=== PATIENT | female | born 1965 | race Caucasian/White ===

== ENCOUNTER → 2023-07-19 12:57 | Outpatient (POV) | payer SELFPAY | PROVIDERS: Visit Provider Dermatology | DX: Z00.00 Encounter for general adult medical examination without abnormal findings (principal) ==

== ENCOUNTER 2023-12-18 12:13 | Emergency (ER) | payer BC, SELFPAY ==
[2023-12-18 12:55] VITALS: BP 110/81; PULSE 89; RESP 21; TEMP 37.4; O2SAT 95; BMI 36.3
--- NOTE | 2023-12-18 13:20 | EXP.UTC ---
Discharge Plan Disposition Patient Disposition: Home, Self-Care Condition: Good Prescriptions Prescriptions: New methylprednisolone [Medrol (Jake)] 4 mg tablets,dose pack See Rx Instructions .Route .COMPLEX 6 Days Qty: 21 0RF Rx Instructions: taper pack; amoxicillin-pot clavulanate 875-125 mg Tablet 1 tab PO Q12H Qty: 20 0RF guaifenesin [Mucinex] 600 mg tablet extended release 12hr 1,200 mg PO BID PRN (Reason: cough) Qty: 20 0RF ofloxacin 0.3 % drops 10 drp otic (ear) Q12H 14 Days Qty: 20 0RF Rx Instructions: in right ear as directed No Action pantoprazole 20 mg tablet,delayed release (DR/EC) 20 mg PO DAILY alprazolam 0.5 mg tablet 0.5 mg PO DAILY citalopram 20 mg tablet 20 mg PO DAILY simvastatin 20 mg tablet 20 mg PO DAILY hydrochlorothiazide 25 mg tablet 25 mg PO DAILY ergocalciferol (vitamin D2) [Vitamin D2] 1,250 mcg (50,000 unit) capsule 1,250 mcg PO DAILY Referrals Follow up/Referrals: Vitor Marshall [Primary Care Provider] - See instructions Activity Restrictions/Add. Instructions Additional Instructions/Restrictions: *Monitor Temp, Over the counter Motrin or Tylenol as directed/as needed Tylenol every 4 hours and Motrin every 6 hours (as long as your family doctor has told you that you can take it) for fever or pain. and straight to ER if unable to lower temp less than 101.0 after medication given *Warm salt water gargles may help to soothe the throat *Throat Lozenges? *Warm fluids like tea with honey may help to soothe the throat? *Sleep elevated *Humidifier/Vaporizer Take medication as prescribed Use ear drops as prescribed Follow up IMMEDIATELY for new or worsening symptoms or no Noticeable improvement over the next 48-72 hours. 911 for difficulty breathing or swallowing Clinical Impressions Clinical Impression: Sinusitis Qualifiers: Sinusitis location: unspecified location Chronicity: unspecified Qualified Code(s): J32.9 - Chronic sinusitis, unspecified Otitis media Qualifiers: Otitis media type: unspecified Laterality: right Qualified Code(s): H66.91 - Otitis media, unspecified, right ear Instructions Patient Instructions: Sinusitis, Middle Ear Infection, DI for Sinusitis Discharge ED Provider: Maeve Miller [facility] [place] HPI General Stated complaint: ear pain, cough, drainage Mode of Arrival: Ambulatory Source of Information: Patient Limitations: No Limitations Time Seen by Provider: 12/18/23 13:20 Description of Symptoms (Recalled from Triage Doc. by RN): PATIENT C/O CONGESTION, COUGH WITH MUCOUS, AND RIGHT EAR ACHE WITH DECREASED HEARING SINCE 12/14 HEENT Symptoms (Recalled from RN notes): Yes Resp Symptoms (Recalled from RN notes): Yes Skin Symptoms (Recalled from RN notes): No MS Symptoms (Recalled from RN notes): No Functional Status (Recalled from RN notes): WNL History of Present Illness Provider Complaint: Patient states that she has been having sinus pain and pressure, pain and pressure in her right ear with decreased hearing, drainage in the back of her throat that at times she will cough up some mucous and over all not feeling well States today the pressure in her sinuses was worse so she came in to get checked Related Data Home Medications Medication Instructions Recorded Confirmed alprazolam 0.5 mg tablet 0.5 mg PO DAILY 12/18/23 12/18/23 citalopram 20 mg tablet 20 mg PO DAILY 12/18/23 12/18/23 ergocalciferol (vitamin D2) 1,250 1,250 mcg PO DAILY 12/18/23 12/18/23 mcg (50,000 unit) capsule (Vitamin D2) hydrochlorothiazide 25 mg tablet 25 mg PO DAILY 12/18/23 12/18/23 pantoprazole 20 mg tablet,delayed 20 mg PO DAILY 12/18/23 12/18/23 release simvastatin 20 mg tablet 20 mg PO DAILY 12/18/23 12/18/23 Previous Rx's Medication Instructions Recorded amoxicillin 875 mg-potassium 1 tab PO Q12H #20 tabs 12/18/23 clavulanate 125 mg tablet guaifenesin 600 mg tablet, 1,200 mg PO BID PRN cough #20 tabs 12/18/23 extended release 12 hr (Mucinex) methylprednisolone 4 mg tablets in See Rx Instructions .Route 12/18/23 a dose pack (Medrol (Jake)) .COMPLEX 6 days #21 tabs ofloxacin 0.3 % ear drops 10 drp otic (ear) Q12H 14 days #20 12/18/23 mL Allergies Allergy/AdvReac Type Severity Reaction Status Date / Time No Known Allergies Allergy Verified 12/18/23 13:07 Worker's Comp Is this a Worker's Comp case?: No [facility] Disclaimer: The information contained in this section may have been updated after the patient was seen, as this information can be updated by other users. Medical History (Updated 12/18/23 @ 13:28 by Maeve Miller APRN) Anxiety Hyperlipidemia Hypertension Surgical History (Updated 12/18/23 @ 13:07 by Jackie Echeverria RN) History of appendectomy History of cholecystectomy History of tubal ligation Social History Smoking Status: Unknown if ever smoked alcohol intake: never current occupational status: employed Travel in the last 8 weeks: None ROS Obtained: Yes All systems reviewed & no additional complaints except as documented and Yes Systems reviewed as appropriate & no additional complaints except as documented Constitutional Constitutional: Reports system reviewed and no additional complaints, except as documented, Reports as per HPI and Reports headache(s) ENT Ears, Nose, Mouth, and Throat: Reports system reviewed and no additional complaints, except as documented, Reports as per HPI, Reports otalgia, Reports headache(s), Reports sinus pain and Reports sinus pressure Cardiovascular Cardiovascular: Reports system reviewed and no additional complaints, except as documented and Reports as per HPI Respiratory Respiratory: Reports system reviewed and no additional complaints, except as documented, Reports as per HPI, Denies shortness of breath and Reports cough Gastrointestinal Gastrointestingal: Reports system reviewed and no additional complaints, except as documented and as per HPI Neurologic Neurologic: Reports headache(s) Physical Exam General General appearance: alert and in no apparent distress ENT ENT exam: Present mucous membranes moist Expanded ENT Exam TM/Canal exam: Right TM: erythema and loss of landmarks Nose exam: Present sinus tenderness Respiratory Respiratory exam: Present normal lung sounds bilaterally; Absent respiratory distress or wheezes Cardiovascular Cardiovascular exam: Present regular rate, normal rhythm and normal heart sounds Abdominal Exam Abdominal exam: Present soft and normal bowel sounds; Absent distention or tenderness Neurological Exam Neurological exam: Present alert, oriented X3 and normal gait Medical Decision Making Wesly Inquiry Pt receiving controlled substance: No Wesly was queried for this patient: No Vital Signs: 12/18/23 12:55 Temperature 99.3 F Temperature Source Oral Pulse Rate [Left Brachial] 89 Respiratory Rate 21 Blood Pressure [Left Arm] 110/81 Blood Pressure Mean [Left Arm] 90 Blood Pressure Source [Left Arm] Automatic Cuff Blood Pressure Position [Left Arm] Sitting 02 Sat by Pulse Oximetry 95 Oxygen Delivery Method Room Air Medical Decision Narrative: Patient states that she has taken augmentin and medrol in the past without complications or reactions
[2023-12-18 13:31] VITALS: BP 110/81; PULSE 89; RESP 21; TEMP 37.4; O2SAT 95
== END 2023-12-18 13:35 | disposition home or self-care (01) ==
PROVIDERS: Emergency Provider Nurse Practitioner; PCP Family Medicine
DX: J01.90 Acute sinusitis, unspecified (principal); H66.91 Otitis media, unspecified, right ear; R51.9 Headache, unspecified; R09.81 Nasal congestion; R09.82 Postnasal drip; R05.8 Other specified cough; I10 Essential (primary) hypertension; E78.5 Hyperlipidemia, unspecified
CPT/HCPCS: 99204; 99212; G0463

== ENCOUNTER 2025-07-20 15:32 | Emergency (ER) | payer BC, SELFPAY ==
[2025-07-20] VITALS (10 sets, daily range): BP systolic 131–179; BP diastolic 84–92; PULSE 63–75; RESP 14–20; TEMP 36.7–37; O2SAT 95–97; BMI 36.3
--- OUTSIDE RECORDS SUMMARY | 2025-07-20 15:39 | XMS_ITS | Clinical Summary ---
Author Organization [facility] Address 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 Role Phone Vitor Marshall MD Primary Care Provider [phone] Social History Tobacco Use Types Packs/Day Years Used Date Smoking Tobacco: Never Assessed Comments No Sex and Gender Information Value Date Recorded Sex Assigned at Not on file Legal Sex Female 4:49 AM EDT Gender Identity Not on file Sexual Orientation Not on file Obstetrics History Para Term AB IAB SAB Ectopic Multiple Livin g Live Births 2 Plan of Treatment Health Maintenance Due Date Last Done Comments Annual Wellness Exam 1966 Hepatitis C Screening 1981 DTaP/TDaP/Td (1 - Tdap) 1982 Cervical Cancer Screening 1984 Pap Smear 1984 HPV/Pap Cotest 1993 Cologuard 2008 Colon Cancer Screening 2008 Colonoscopy 2008 FIT 2008 Sigmoidoscopy 2008 Virtual Colonography 2008 Pneumococcal Vaccine 50+ (1 of 1 - PCV) 2013 Zoster (1 of 2) 2013 COVID-19 Vaccine (1 - season) 2025 Influenza Vaccine (#1) 2025 Breast Cancer Screening 12/11/2026 12/11/19, 11/21/2023, 11/22/2022, Additional history exists Hepatitis B Vaccine Aged Out No longe r eligible based on patient's age to complete this topic Meningococcal B Vaccine Aged Out No l onger eligible based on patient's age to complete this topic Procedures Procedure Name Priority Date/Time Associated Diagnosis Comments MM MAMMO DIGITAL VON SCREEN BILAT Routine 12/11/2024 9:40 AM EST Encounter for screening mammogram for malignant neoplasm of breast from Last 3 Months or Most Recently Relevant to Health Maintenance Results * (ABNORMAL) MM MAMMO DIGITAL VON SCREEN BILAT (12/11/2024 9:40 AM EST) Anatomical Region Laterality Modality Breast Bilateral Mammography 12/11/2024 9:40 AM EST Impressions 12/12/2024 9:11 AM EST Incomplete: Need additional imaging evaluation ([id number]) RECOMMENDATION: Additional Imaging Breast Ultrasound Left COMMENTS: Narrative 12/12/2024 9:11 AM EST EXAM: MM MAMMO DIGITAL VON SCREEN BILAT EXAM DATE: 12/11/2024 9:40 AM INDICATION: Z12.31-Encounter for screening mammogram for malignant neoplasm of [id number] COMPARISON STUDIES: Compared with prior studies, the most recent being 11/21/2023 MM MAMMO DIGITAL VON SCREEN BILAT at [facility] 11/22/2022 MM MAMMO DIGITAL VON SCREEN BILAT at [facility] 11/24/2020 MM MAMMO DIGITAL VON SCREEN BILAT at [facility] TISSUE DENSITY: There are scattered areas of fibroglandular density. FINDINGS: There is an oval circumscribed 1.5 cm mass in the upper outer quadrant left breast. This is a probable breast cyst. There are no internal microcalcifications. There is no mammographic evidence of malignancy in the right breast. Procedure Note Lavern Hobbs MD - 12/12/2024 EXAM: MM MAMMO DIGITAL VON SCREEN BILAT EXAM DATE: 12/11/2024 9:40 AM INDICATION: Z12.31-Encounter for screening mammogram for malignantneoplasm of [id number] COMPARISON STUDIES: Compared with prior studies, the most recent being 11/21/2023 MM MAMMO DIGITAL VON SCREEN BILAT at [facility] 11/22/2022 MM MAMMO DIGITAL VON SCREEN BILAT at [facility] 11/24/2020 MM MAMMO DIGITAL VON SCREEN BILAT at [facility] TISSUE DENSITY: There are scattered areas of fibroglandular density. FINDINGS: There is an oval circumscribed 1.5 cm mass in the upper outerquadrant left breast. This is a probable breast cyst. There are no internal microcalcifications. There is no mammographic evidence of malignancy inthe right breast. IMPRESSION: Incomplete: Need additional imaging evaluation ([id number]) RECOMMENDATION: Additional Imaging Breast Ultrasound Left COMMENTS: us Vitor Marshall MD IMG MAMMOGRAPHY ORDERABLES Fin al Result from Last 3 Months or Most Recently Relevant to Health Maintenance Insurance O Care Teams Concrete Mixer Operator Helper Relationship Specialty Start Date End Date Vitor Marshall MD [address] [place] [address] PCP - General Family Medicine 09/24/13
--- NOTE | 2025-07-20 15:45 | CT_ITS ---
PROCEDURE INFORMATION: Exam: CTA Head With Contrast, Arteriography Exam date and time: 07/20/2025 4:40 PM Age: 59 years old Clinical indication: Other: Left upper chest pain radiating to upper back/neck TECHNIQUE: Imaging protocol: Computed tomographic angiography of the head with contrast. Exam focused on the arteries. Computed tomographic angiography of the head with contrast. Exam focused on the arteries. AI vessel analysis not performed. 3D rendering (Not supervised by radiologist): MIP and/or 3D reconstructed images were created by the technologist. Radiation optimization: All CT scans at this facility use at least one of these dose optimization techniques: automated exposure control; mA and/or kV adjustment per patient size (includes targeted exams where dose is matched to clinical indication); or iterative reconstruction. COMPARISON: No relevant prior studies available. FINDINGS: ANTERIOR CIRCULATION: Right internal carotid artery: Right internal carotid artery is patent. No significant stenosis. No aneurysm. Right middle cerebral artery: Right middle cerebral artery is patent. No significant stenosis. No aneurysm. Right anterior cerebral artery: Visualized right SY patent. Anterior communicating artery: No anterior communicating artery aneurysm seen. Left internal carotid artery: Left internal carotid artery is patent. No significant stenosis. No aneurysm. Left middle cerebral artery: Left middle cerebral artery is patent. No significant stenosis. No aneurysm. 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 Distally the visualized vessel is patent. POSTERIOR CIRCULATION: Right vertebral artery: Right vertebral artery is patent. No significant stenosis. No aneurysm. Left vertebral artery: Left vertebral artery is patent. No significant stenosis. No aneurysm. Basilar artery: The basilar artery is patent. No significant stenosis. No aneurysm. Right posterior cerebral artery: Right posterior cerebral artery is patent. No significant stenosis. No aneurysm. Left posterior cerebral artery: Left posterior cerebral artery is patent. No significant stenosis. No aneurysm. Veins: Visualized dural venous sinuses patent. Brain: There is no definite mass, mass effect, or midline shift present. No definite vascular malformation identified. Minimal cerebellar tonsillar ectopia suspected. This could be further evaluated with an MRI for follow-up. Cerebral ventricles: No significant ventriculomegaly. Bones/joints: No acute osseous abnormality. Soft tissues: Soft tissues are unremarkable as visualized. IMPRESSION: No acute large vessel occlusion identified. PROCEDURE INFORMATION: Exam: CTA Neck With Contrast Exam date and time: 07/20/2025 4:40 PM Age: 59 years old Clinical indication: Other: Left upper chest pain radiating to upper back/neck TECHNIQUE: Imaging protocol: Computed tomographic angiography of the neck with contrast. Exam focused on the cervical segments of the vasculature. 3D rendering (Not supervised by radiologist): MIP and/or 3D reconstructed images were created by the technologist. Radiation optimization: All CT scans at this facility use at least one of these dose optimization techniques: automated exposure control; mA and/or kV adjustment per patient size (includes targeted exams where dose is matched to clinical indication); or iterative reconstruction. Contrast material: ISOVUE; Contrast volume: 80 ml; Contrast route: INTRAVENOUS (IV); COMPARISON: CR (CHEST, CXR AP LANDSCAPE) 07/20/2025 4:01 PM FINDINGS: Right common carotid artery: The right common carotid artery is widely patent. No stenosis. Right internal carotid artery: The right internal carotid artery is patent. No stenosis by NASCET criteria. No evidence of dissection. Right external carotid artery: Right external carotid artery has no visible occlusion. Left common carotid artery: The left common carotid artery is widely patent. No stenosis. Left internal carotid artery: The left internal carotid artery is patent. No stenosis by NASCET criteria. No evidence of dissection. Left external carotid artery: Left external carotid artery has no visible occlusion. Right vertebral artery: Right vertebral artery is patent. No significant stenosis. No evidence of dissection. Left vertebral artery: Left vertebral artery is patent. No significant stenosis. No evidence of dissection. Soft tissues: Soft tissues are unremarkable as visualized. Bones/joints: Degenerative bony changes. Lungs: There is a spiculated solid left upper lobe pulmonary nodule present measuring 1.2 cm on series 5, image 5. Other findings: Visualized mediastinal vasculature patent. IMPRESSION: 1. No occlusion or significant stenosis. 2. There is a spiculated solid left upper lobe pulmonary nodule present measuring 1.2 cm on series 5, image 5. This is suspicious for possible lung malignancy, attention on pending chest CT. For both low risk and high risk patients, consider CT Chest at 3 months, PET/CT, or biopsy. (Reference: Brijesh) REFERENCES: 1. Brijesh Mills et al. Guidelines for Management of Incidental Pulmonary Nodules Detected on CT Images: From the Fleischner Society 2017. Radiology. 2017;284(1):228-243. 2. NASCET CRITERIA. The degree of stenosis in the cervical segment of the internal carotid artery is based on NASCET criteria. Normal is no stenosis. Mild is less than 50% stenosis. Moderate is 50-69% stenosis. Severe is 70% to 99% stenosis. Total occlusion is no detectable patent lumen.
--- NOTE | 2025-07-20 15:45 | CT_ITS ---
PROCEDURE INFORMATION: Exam: CTA Chest With Contrast Exam date and time: 07/20/2025 4:44 PM Age: 59 years old Clinical indication: Other: Left upper chest pain radiating to upper back/neck TECHNIQUE: Imaging protocol: Computed tomographic angiography of the chest with contrast. Exam focused on the arteries. 3D rendering (Not supervised by radiologist): MIP and/or 3D reconstructed images were created by the technologist. Radiation optimization: All CT scans at this facility use at least one of these dose optimization techniques: automated exposure control; mA and/or kV adjustment per patient size (includes targeted exams where dose is matched to clinical indication); or iterative reconstruction. Contrast material: ISOVUE; Contrast volume: 80 ml; Contrast route: INTRAVENOUS (IV); COMPARISON: CR (CHEST, CXR AP LANDSCAPE) 07/20/2025 4:01 PM FINDINGS: Pulmonary arteries: Normal. No pulmonary emboli. Aorta: Unremarkable. No aortic aneurysm. No aortic dissection. Lungs: 10 x 10 x 9 mm spiculated noncalcified nodule in the left upper lobe (series 5, image 26). Pleural spaces: Unremarkable. No pneumothorax. No pleural effusion. Heart: Borderline cardiomegaly. Lymph nodes: Unremarkable. No enlarged lymph nodes. Liver: 9 x 10 x 11 mm mass in the medial left liver lobe, HU 28 (series 5, image 77). Gallbladder and biliary ducts: Cholecystectomy. Adrenal glands: 2 x 1.1 x 2 cm right adrenal nodule, HU 45. Left adrenal unremarkable. Bones/joints: Spondylosis of the spine. 8 mm subchondral cyst in the left scapular glenoid. Soft tissues: Unremarkable. IMPRESSION: 1. No thoracic aortic dissection or aneurysm. 2. 10 x 10 x 9 mm spiculated noncalcified nodule in the left upper lobe. Consider non-emergent PET/CT or tissue sampling.(Reference: Brijesh) 3. Borderline cardiomegaly. 4. 9 x 10 x 11 mm nonspecific mass in the medial left liver lobe. In a low-risk patient, this is most likely to be benign and no further follow-up is recommended. In a high-risk patient, follow-up MRI in 3-6 months is recommended (or earlier if warranted by the patient's specific clinical circumstances). (Reference: Luis E) 5. Nonspecific right adrenal nodule, 2 x 1.1 x 2 cm. PET-CT or non-emergent adrenal CT is recommended. Non-emergent chemical shift MRI (CS-MR) may be considered. (Reference: Teressa) REFERENCES: 1. Brijesh H, et al. Guidelines for Management of Incidental Pulmonary Nodules Detected on CT Images: From the Fleischner Society 2017. Radiology. 2017;284(1):228-243. 2. Luis E LOCKWOOD, et al. Management of Incidental Liver Lesions on CT: A White Paper of the ACR Incidental Findings Committee. J Am Jessica Radiol. 2017;14(11):5402-1284. 3. Teressa HARE, et al. Management of Incidental Adrenal Masses: A White Paper of the ACR Incidental Findings Committee. J Am Jessica Radiol. 2017;14(8):0428-0824.
--- NOTE | 2025-07-20 15:45 | XR_ITS ---
PROCEDURE INFORMATION: Exam: XR Chest Exam date and time: 07/20/2025 4:01 PM Age: 59 years old Clinical indication: Other: Chest pain TECHNIQUE: Imaging protocol: Radiologic exam of the chest. Views: 1 view. COMPARISON: No relevant prior studies available. FINDINGS: Tubes, catheters and devices: EKG lead. Lungs: Unremarkable. No consolidation. Pleural spaces: Unremarkable. No pleural effusion. No pneumothorax. Heart/Mediastinum: Borderline enlargement of the cardiac silhouette. Bones/joints: Unremarkable. IMPRESSION: Borderline enlargement of the cardiac silhouette.
--- NOTE | 2025-07-20 15:50 | XR_ITS ---
PROCEDURE INFORMATION: Exam: XR Left Shoulder Exam date and time: 07/20/2025 4:01 PM Age: 59 years old Clinical indication: Pain; Shoulder; Left; Additional info: Left shoulder pain TECHNIQUE: Imaging protocol: Radiologic exam of the left shoulder. Views: 2 or more views. COMPARISON: No relevant prior studies available. FINDINGS: Tubes, catheters and devices: EKG lead. Bones/joints: No acute fracture or dislocation. No erosions or periosteal reaction. Soft tissues: Normal. IMPRESSION: No acute findings.
--- NOTE | 2025-07-20 15:53 | HMH.EDCP ---
Discharge Plan Disposition Patient Disposition: Home, Self-Care Prescriptions Prescriptions: New methocarbamol 500 mg tablet 500 mg PO HS Qty: 30 0RF No Action pantoprazole 20 mg tablet,delayed release (DR/EC) 20 mg PO DAILY alprazolam 0.5 mg tablet 0.5 mg PO DAILY citalopram 20 mg tablet 20 mg PO DAILY simvastatin 20 mg tablet 20 mg PO DAILY hydrochlorothiazide 25 mg tablet 25 mg PO DAILY ergocalciferol (vitamin D2) [Vitamin D2] 1,250 mcg (50,000 unit) capsule 1,250 mcg PO DAILY methylprednisolone [Medrol (Jake)] 4 mg tablets,dose pack See Rx Instructions .Route .COMPLEX 6 Days Qty: 21 0RF Rx Instructions: taper pack; amoxicillin-pot clavulanate 875-125 mg Tablet 1 tab PO Q12H Qty: 20 0RF guaifenesin [Mucinex] 600 mg tablet extended release 12hr 1,200 mg PO BID PRN (Reason: cough) Qty: 20 0RF ofloxacin 0.3 % drops 10 drp otic (ear) Q12H 14 Days Qty: 20 0RF Rx Instructions: in right ear as directed Referrals Follow up/Referrals: Vitor Marshall [Primary Care Provider, Medical] - See instructions Charlene Blanco MD [Physician, Pulmonology] - See instructions Activity Restrictions/Add. Instructions Additional Instructions/Restrictions: Please follow-up with your primary care provider regarding abnormal CT findings and suspicious lesions to lung, liver, adrenal gland. We will provide you images and reads prior to discharge. I am also placing referral to see pulmonology. Please return to the ER if symptoms persist or worsen or with any questions, concerns, complaints. I am also prescribing you Robaxin as needed for muscle soreness. Please take as needed. Clinical Impressions Clinical Impression: Incidental lung nodule Instructions Patient Instructions: DI for Pulmonary Nodule Print Language Print Language: Citizen Of [place] Discharge ED Provider: Larry Wright JR [facility] General Chief Complaint: Chest Pain Stated Complaint: left shoulder pain Time Seen by Provider: 07/20/25 15:36 Mode of Arrival: Ambulatory Source of Information: Patient Description of Symptoms (Recalled from ER Triage Doc. by RN): pt is here for left shoulder pain x 3-4 days that goes down arm and into neck that, pt states she does periods of dizziness but denies any soa, pt also complains of a lump in left armpit History of Present Illness HPI narrative: This is a 59-year-old female with history of hypertension and 40-year smoking history who is presenting for left shoulder pain, left upper chest pain, radiating to left neck, left upper back, and left arm with numbness and tingling down left upper extremity. Symptoms started 4 days ago. Constant in nature. Nothing making the pain better or worse. Not worse with exertion or deep breathing. Patient denies fever, chills, recent illness, nausea, vomiting, diarrhea. No shortness of breath. Patient does endorse a brief episode of dizziness prior to onset. She denies any dizziness or headache or blurry vision today. Arrives here stable on room air. Patient does do heavy lifting for work. She believes she may have strained her left shoulder and believes it is musculoskeletal in nature. No further complaints at this time. MD complaint: chest pain Onset (ago): day(s) (Four) Duration: constant Pain location: left chest Severity: mild Quality: aching Pain radiation: LUE, back and neck Relieving factors: nothing Exacerbating factors: nothing Related Data Home Medications ?Medication ?Instructions ?Recorded ?Confirmed alprazolam 0.5 mg tablet 0.5 mg PO DAILY 12/18/23 12/18/23 citalopram 20 mg tablet 20 mg PO DAILY 12/18/23 12/18/23 ergocalciferol (vitamin D2) 1,250 1,250 mcg PO DAILY 12/18/23 12/18/23 mcg (50,000 unit) capsule (Vitamin D2) hydrochlorothiazide 25 mg tablet 25 mg PO DAILY 12/18/23 12/18/23 pantoprazole 20 mg tablet,delayed 20 mg PO DAILY 12/18/23 12/18/23 release simvastatin 20 mg tablet 20 mg PO DAILY 12/18/23 12/18/23 Previous Rx's ?Medication ?Instructions ?Recorded amoxicillin 875 mg-potassium 1 tab PO Q12H #20 tabs 12/18/23 clavulanate 125 mg tablet guaifenesin 600 mg tablet, 1,200 mg (2 x 600 mg) PO BID PRN 12/18/23 extended release 12 hr (Mucinex) cough #20 tabs methylprednisolone 4 mg tablets in See Rx Instructions .Route 12/18/23 a dose pack (Medrol (Jake)) .COMPLEX 6 days #21 tabs ofloxacin 0.3 % ear drops 10 drp otic (ear) Q12H 14 days #20 12/18/23 mL methocarbamol 500 mg tablet 500 mg PO HS #30 tabs 07/20/25 Allergies Allergy/AdvReac Type Severity Reaction Status Date / Time No Known Allergies Allergy Verified 12/18/23 13:07 [facility] Disclaimer: The information contained in this section may have been updated after the patient was seen, as this information can be updated by other users. Medical History (Updated 07/20/25 @ 18:40 by Larry Wirght JR, DO) Anxiety Hyperlipidemia Hypertension Surgical History (Updated 12/18/23 @ 13:07 by Jackie Echeverria RN) History of tubal ligation History of cholecystectomy History of appendectomy Social History (Updated 12/18/23 @ 13:28 by Maeve Miller APRN) Smoking Status: Current every day smoker alcohol intake: never current occupational status: employed Travel in the last 8 weeks?: None Have you lived/traveled outside US in past 30 days?: No Contact w/someone who lives/traveled outside US past 30 days?: No Exposure to someone with infectious disease in past 14 days?: No Do you have a fever (greater than 100.4 F or 38 C)?: No Have you tested positive for COVID-19?: No Exposed to someone with COVID-19 in past 14 days?: No Do you have a sore throat?: No Do you have a cough?: No Do you have any weakness?: No Do you have any diarrhea?: No Are you experiencing any unusual bleeding?: No Do you have any muscle aches/pain?: No Do you have any abdominal pain?: No Are you experiencing loss of taste or smell?: No ROS Obtained: Yes All systems reviewed & no additional complaints except as documented Constitutional Constitutional: Reports system reviewed and no additional complaints, except as documented and Reports as per HPI Eyes Eyes: Reports system reviewed and no additional complaints, except as documented and Reports as per HPI ENT Ears, Nose, Mouth, and Throat: Reports system reviewed and no additional complaints, except as documented and Reports as per HPI Cardiovascular Cardiovascular: Reports chest pain, Denies dyspnea and Denies dyspnea on exertion Respiratory Respiratory: Reports system reviewed and no additional complaints, except as documented, Reports as per HPI, Denies shortness of breath, Denies dyspnea and Denies dyspnea on exertion Gastrointestinal Gastrointestingal: Reports system reviewed and no additional complaints, except as documented and as per HPI Musculoskeletal Musculoskeletal: Reports system reviewed and no additional complaints, except as documented and Reports as per HPI Neurologic Neurologic: Reports system reviewed and no additional complaints, except as documented and Reports as per HPI Physical Exam General General appearance: alert and in no apparent distress Head Head exam: atraumatic and normocephalic Chest Chest inspection: Present normal inspection and symmetric chest wall rise; Absent tenderness Respiratory Respiratory exam: Present normal lung sounds bilaterally and respiratory distress Cardiovascular Cardiovascular exam: Present regular rate and normal rhythm Abdominal Exam Abdominal exam: Present soft; Absent tenderness Back Exam Back exam: Present tenderness and other (Decreased range of motion to left shoulder, tenderness to left shoulder); Absent full ROM Neurological Exam Neurological exam: Present alert and oriented X3 Skin Skin exam: Present warm and dry HEART Score HEART Score HEART Score assessment performed?: Yes History (anamnesis): Slightly suspicious ECG: Normal Age: 45-65 years Risk factors: 1-2 risk factors Troponin: </= normal limit HEART Score: 2 Critical Care Critical Care Time Critical Care Time: No Medical Decision Making Wesly Inquiry Pt receiving controlled substance: No Vital Signs Vital Signs: 07/20/25 15:41 07/20/25 15:45 07/20/25 15:56 Temperature 98.6 F Temperature Source Oral Pulse Rate 74 75 Pulse Rate [Left Radial] 75 Respiratory Rate 20 16 Blood Pressure 168/90 H Blood Pressure [Right Arm] 168/90 H Blood Pressure Mean Blood Pressure Mean [Right Arm] 116 02 Sat by Pulse Oximetry 96 97 Oxygen Delivery Method Room Air 07/20/25 16:00 07/20/25 17:01 07/20/25 17:21 Temperature Temperature Source Pulse Rate 68 71 64 Pulse Rate [Left Radial] Respiratory Rate 14 18 18 Blood Pressure 164/87 H 131/92 H 179/91 H Blood Pressure [Right Arm] Blood Pressure Mean 108 109 Blood Pressure Mean [Right Arm] 02 Sat by Pulse Oximetry 97 96 95 Oxygen Delivery Method 07/20/25 17:41 07/20/25 18:01 07/20/25 18:33 Temperature Temperature Source Pulse Rate 67 65 63 Pulse Rate [Left Radial] Respiratory Rate 20 18 18 Blood Pressure 170/91 H 157/92 H 161/84 H Blood Pressure [Right Arm] Blood Pressure Mean 117 113 109 Blood Pressure Mean [Right Arm] 02 Sat by Pulse Oximetry 96 95 97 Oxygen Delivery Method Lab Data Labs: Lab Results 07/20/25 15:52: WBC 7.3, RBC 5.25, Hgb 14.5, Hct 43.2, MCV 82.3, MCH 27.6, MCHC 33.6, RDW 14.8, Plt Count 208, MPV 11.1 H, Neut % (Auto) 53.6, Lymph % (Auto) 36.6, Callaway % (Auto) 7.0, Eos % (Auto) 2.0, Baso % (Auto) 0.7, Neut # (Auto) 3.9, Lymph # (Auto) 2.7, Callaway # (Auto) 0.5, Eos # (Auto) 0.2, Baso # (Auto) 0.1, Sodium 141, Potassium 3.3 L, Chloride 106, Carbon Dioxide 31 H, Anion Gap 7.3, BUN 12, Creatinine 0.80, Estimated Creat Clear 87, Estimated GFR 73, Est GFR ( Amer) 88, Glucose 116 H, Calcium 9.3, Total Bilirubin 0.2, AST 21, ALT 14, Alkaline Phosphatase 63, Troponin I < 0.01, Total Protein 6.7, Albumin 4.4, Globulin 2.3, Albumin/Globulin Ratio 1.9 H 07/20/25 15:52 07/20/25 15:52 Response Orders (Tests/Meds): ED MEDICATIONS Discontinued Medications Generic Name Dose Route Start Last Admin Trade Name Shaniqua PRN Reason Stop Dose Admin Aspirin 325 mg 07/20/25 15:45 07/20/25 16:01 Aspirin 325mg Tablet PO 07/20/25 15:46 325 mg ONCE ONE Administration Iopamidol 160 ml 07/20/25 16:45 07/20/25 16:46 Iopamidol-370 (76%);100ml Bottle IV 07/20/25 16:46 160 ml ONCE ONE Administration Methocarbamol 500 mg 07/20/25 21:00 07/20/25 16:02 Methocarbamol 500mg Tablet PO 08/19/25 20:59 500 mg BID BENITA Administration Methocarbamol 500 mg 07/20/25 17:02 07/20/25 17:03 Methocarbamol 500mg Tablet PO 07/20/25 17:03 Not Given ONCE ONE Ondansetron HCl 4 mg 07/20/25 15:45 07/20/25 16:01 Ondansetron 4mg/2ml Vial IV 07/20/25 15:46 4 mg ONCE ONE Administration Potassium Chloride 20 meq 07/20/25 16:11 07/20/25 16:17 Potassium Chloride 20meq Tab PO 07/20/25 16:12 20 meq ONCE ONE Administration Sodium Chloride 10 ml 07/20/25 16:45 07/20/25 16:46 Sodium Chloride 0.9% 10ml Syr (Rad Only) IV 07/20/25 16:46 10 ml ONCE ONE Administration Sodium Chloride 50 ml 07/20/25 16:45 07/20/25 16:46 0.9 % Sodium Chloride 50 Ml Vial IV 07/20/25 16:46 50 ml ONCE ONE Administration ORDERS Category Date Time Status CT angio chest - dissection Stat Cat Scan 07/20/25 15:[address] angio neck Stat Cat Scan 07/20/25 15:45 Completed XR chest portable Stat Exams 07/20/25 15:45 Completed XR shoulder LT min 2V Stat Exams 07/20/25 15:50 Completed Complete Blood Count Auto Diff Stat Lab 07/20/25 15:52 Completed Comprehensive Metabolic Panel Stat Lab 07/20/25 15:52 Completed Troponin I Q3H Lab 07/20/25 18:45 Ordered Troponin I Q3H Lab 07/20/25 21:45 Ordered Troponin I Stat Lab 07/20/25 15:52 Completed ECG Data Tracing #1: ECG Narrative: EKG reviewed and independently interpreted, significant for normal sinus rhythm, no ST elevation, no STEMI MDM Narrative Medical Decision Narrative: This is a 59-year-old female with history of [id number]-hskc smoking history and hypertension presenting with left shoulder aching pain, radiating to left upper neck, left upper back, left chest and left upper extremity. Patient believes this is musculoskeletal in nature. Given patient's history of smoking and hypertension, we will need to rule out ACS as well as aortic dissection. Ordered troponins, EKG, chest x-ray, CTA of chest and neck. No current focal deficits however patient did endorse an episode of dizziness yesterday. EKG reviewed and independently interpreted, significant for normal sinus rhythm, no ST elevation, no STEMI Patient continues to deny any headache, blurry vision, or any focal deficits. No focal deficits on exam. Pulses equal. White count within normal limits. Potassium 3.3. Will replete. Initial troponin normal. Upon reevaluation, patient reports feeling better after multimodal pain control. No current pain. No chest pain or shortness breath. Neck CTA IMPRESSION: 1. No occlusion or significant stenosis. 2. There is a spiculated solid left upper lobe pulmonary nodule present measuring 1.2 cm on series 5, image 5. This is suspicious for possible lung malignancy, attention on pending chest CT. For both low risk and high risk patients, consider CT Chest at 3 months, PET/CT, or biopsy. (Reference: Brijesh) CTA chest IMPRESSION: 1. No thoracic aortic dissection or aneurysm. 2. 10 x 10 x 9 mm spiculated noncalcified nodule in the left upper lobe. Consider non-emergent PET/CT or tissue sampling.(Reference: Brijesh) 3. Borderline cardiomegaly. 4. 9 x 10 x 11 mm nonspecific mass in the medial left liver lobe. In a low-risk patient, this is most likely to be benign and no further follow-up is recommended. In a high-risk patient, follow-up MRI in 3-6 months is recommended (or earlier if warranted by the patient's specific clinical circumstances). (Reference: Luis E) 5. Nonspecific right adrenal nodule, 2 x 1.1 x 2 cm. PET-CT or non-emergent adrenal CT is recommended. Non-emergent chemical shift MRI (CS-MR) may be considered. (Reference: JuliánSimon) First troponin normal. Symptoms of chest pain have resolved. Patient is afebrile, hemodynamically stable, no acute distress. We will have patient follow-up with PCP and pulmonology for incidental CT chest findings. Return precaution given. All questions answered. Etiology likely related to musculoskeletal strain. Will prescribe Robaxin for home.
[2025-07-20 16:00] LABS: Hematocrit 43.2 % (37.0-47.0); Hemoglobin 14.5 g/dL (12.2-16.2); Immature Granulocytes % 0.1 %; Mean Corpuscular HGB Conc 33.6 g/dL (31.8-35.4); Mean Corpuscular Hemoglobin 27.6 pg (27.0-31.2); Mean Corpuscular Volume 82.3 fl (81-99); Nucleated Red Blood Cells % 0 %; Platelet Count 208 K/mm3 (142-424); Red Blood Count 5.25 M/mm3 (4.20-5.40); Red Cell Distribution Width-SD 44.3 fL; White Blood Count 7.3 K/mm3 (4.8-10.8)
[2025-07-20] MEDS: ONDANSETRON 4MG/2ML VIAL 4 MG IV (16:01)
[2025-07-20] MEDS: ASPIRIN 325MG TABLET 325 MG PO (16:01)
[2025-07-20] MEDS: METHOCARBAMOL 500MG TABLET 500 MG PO (16:02)
[2025-07-20 16:07] LABS: Chloride 106 mmol/L (98-107)
[2025-07-20 16:08] LABS: Albumin Level 4.4 g/dl (3.5-5.0); Potassium 3.3 mmoL/L (3.5-5.1); Sodium 141 mmol/L (136-145)
[2025-07-20 16:10] LABS: Alanine Aminotransferase 14 U/L (12-78); Anion Gap 7.3 mEq/L (5-15); Aspartate Amino Transferase 21 U/L (14-36); Blood Urea Nitrogen 12 mg/dl (7-17); Carbon Dioxide 31 mmol/L (22.0-30.0); Creatinine Clearance Estimated 87 mL/min (50-200); Creatinine,Serum 0.80 mg/dl (0.52-1.04); Estimated Glomerular Filt Rate 73 ml/min (>60); GFR (African American) 88 ML/MIN (>60)
[2025-07-20 16:11] LABS: Albumin/Globulin Ratio 1.9 (1.1-1.8); Alkaline Phosphatase 63 U/L (38-126); Bilirubin,Total 0.2 mg/dl (0.2-1.3); Calcium 9.3 mg/dl (8.4-10.2); Globulin 2.3 g/dL (1.3-3.2); Glucose 116 mg/dl (74-100); Total Protein,Serum 6.7 g/dl (6.3-8.2)
[2025-07-20] MEDS: POTASSIUM CHLORIDE 20MEQ TAB 20 MEQ PO (16:17)
[2025-07-20 16:29] LABS: Troponin I < 0.01 ng/ml (0.00-0.034)
[2025-07-20] MEDS: SODIUM CHLORIDE 0.9% 10ML SYR (RAD ONLY) 10 ML IV (16:46)
[2025-07-20] MEDS: IOPAMIDOL-370 (76%);100ML BOTTLE 160 ML IV (16:46)
[2025-07-20] MEDS: 0.9 % SODIUM CHLORIDE 50 ML VIAL IV (16:46)
--- NOTE | 2025-07-20 18:26 | PC.NURSE ---
ER speaking with [facility] @ this time
== END 2025-07-20 18:54 | disposition home or self-care (01) ==
PROVIDERS: Emergency Provider Student in an Organized Health Care Education/Training Program; PCP Family Medicine
DX: R91.1 Solitary pulmonary nodule (principal)
CPT/HCPCS: 70498; 71045; 71275; 73030; 80053; 84484; 85025; 93005; 96374; 99285; J2405; Q9967

== ENCOUNTER 2025-08-20 09:28 | Outpatient (CLI) | payer BC, SELFPAY ==
[2025-08-20 08:43] VITALS: BMI 36.3
--- OUTSIDE RECORDS SUMMARY | 2025-08-20 09:30 | XMS_ITS | Clinical Summary ---
Author Organization [facility] Address [address] [place] [address] Phone Care Team Providers Care Hris Specialist Name Role Phone Vitor Marshall MD Primary Care Provider [phone] Social History Tobacco Use Types Packs/Day Years [...] AM EST Incomplete: Need additional imaging evaluation ([id number]) RECOMMENDATION: Additional Imaging Breast Ultrasound Left COMMENTS: Narrative 12/12/2024 9:11 AM EST EXAM: MM MAMMO DIGITAL VON SCREEN BILAT EXAM DATE: 12/11/2024 9:40 AM INDICATION: Z12.31-Encounter for screening mammogram for malignant neoplasm of [id number] COMPARISON STUDIES: Compared with prior studies, the most recent being 11/21/2023 MM MAMMO DIGITAL VON SCREEN BILAT at [facility] 11/22/2022 MM MAMMO DIGITAL VON SCREEN BILAT at [facility] 11/24/2020 MM MAMMO DIGITAL VON SCREEN BILAT at [facility] TISSUE DENSITY: There are scattered areas [...] Z12.31-Encounter for screening mammogram for malignantneoplasm of [id number]-CM COMPARISON STUDIES: Compared with prior studies, the most recent being 11/21/2023 MM MAMMO DIGITAL VON SCREEN BILAT at [facility] 11/22/2022 MM MAMMO DIGITAL VON SCREEN BILAT at [facility] 11/24/2020 MM MAMMO DIGITAL VON SCREEN BILAT at [facility] TISSUE DENSITY: There are scattered areas of fibroglandular density. FINDINGS: There is an oval circumscribed 1.5 cm mass in the upper outerquadrant left breast. This is a probable breast cyst. There are no internal microcalcifications. There is no mammographic evidence of malignancy inthe right breast. IMPRESSION: Incomplete: Need additional imaging evaluation ([id number]) RECOMMENDATION: Additional Imaging Breast Ultrasound Left COMMENTS: us Vitor Marshall MD IMG MAMMOGRAPHY ORDERABLES Fin al Result from Last 3 Months or Most Recently Relevant to Health Maintenance Insurance O Care Teams Hris Specialist Relationship Specialty Start Date End Date Vitor Marshall MD [address] [place] [address] PCP - General Family Medicine 09/24/13
[2025-08-20 09:59] LABS: Hematocrit 43.3 % (37.0-47.0); Hemoglobin 14.3 g/dL (12.2-16.2); Immature Granulocytes % 0.2 %; Mean Corpuscular HGB Conc 33.0 g/dL (31.8-35.4); Mean Corpuscular Hemoglobin 27.4 pg (27.0-31.2); Mean Corpuscular Volume 83.0 fl (81-99); Nucleated Red Blood Cells % 0 %; Platelet Count 237 K/mm3 (142-424); Red Blood Count 5.22 M/mm3 (4.20-5.40); Red Cell Distribution Width-SD 44.5 fL; White Blood Count 6.0 K/mm3 (4.8-10.8)
[2025-08-20 10:40] LABS: Anion Gap 12.6 mEq/L (5-15); Blood Urea Nitrogen 11 mg/dl (7-17); Calcium 9.0 mg/dl (8.4-10.2); Carbon Dioxide 30 mmol/L (22.0-30.0); Chloride 100 mmol/L (98-107); Creatinine Clearance Estimated 87 mL/min (50-200); Creatinine,Serum 0.80 mg/dl (0.52-1.04); Estimated Glomerular Filt Rate 73 ml/min (>60); GFR (African American) 88 ML/MIN (>60); Glucose 103 mg/dl (74-100); Potassium 3.6 mmoL/L (3.5-5.1); Sodium 139 mmol/L (136-145)
== END 2025-08-20 23:59 | disposition home or self-care (01) ==
LOC: PREOP 09:28
PROVIDERS: PCP Family Medicine; Visit Provider Internal Medicine Pulmonary Disease
DX: Z01.812 Encounter for preprocedural laboratory examination (principal)
CPT/HCPCS: 80048; 85025

== ENCOUNTER 2025-08-23 06:09 | Day surgery (SDC) | payer BC, SELFPAY ==
[2025-08-20 13:42] VITALS: BMI 36.3
[2025-08-23] VITALS (11 sets, daily range): BP systolic 135–163; BP diastolic 74–99; PULSE 63–81; RESP 16–18; TEMP 32–36.4; O2SAT 92–96; BMI 36.3
[2025-08-23] MEDS: LACTATED RINGERS 1000ML 1,000 ML 25 ML IV (06:45)
--- NOTE | 2025-08-23 07:15 | EXP.ANES.CKL ---
[facility] Disclaimer: The information contained in this section may have been updated after the patient was seen, as this information can be updated by other users. Medical History Smoking greater than 30 pack years Dyspnea on exertion Pulmonary emphysema Lung nodule Anxiety Hyperlipidemia Hypertension Surgical History History of tubal ligation History of cholecystectomy History of appendectomy Family History Other Family history of cancer Family history of diabetes mellitus Family history of heart disease Social History (Updated 08/23/25 @ 06:25 by Rebecca Prieto RN) Smoking Status: Former smoker alcohol intake: never substance use type: denies use current occupational status: employed Travel in the last 8 weeks?: None [facility] Anesthesia Checklist Patient Identification Patient Identification: Arm Band and Verbal (Name & ) Structural Data Admitted From: Home Planned Operative Procedure/s: bronchoscopy w/ ebus Consent for Planned Operative Procedure(s) Verified: Yes Verified Documents: Surgical Consent NPO Status Verified Time NPO: 00:00 Chart Verification Results Verified: ECG Additional verifications Anesthesia Reactions: No Airway Assessment Mallampati Score:: Class II C-Spine Mobility Assessed: Yes TMJ Mobility Assessed: Yes Dentition: Good Dentition (Missing most teeth) Neurological Assessment Level of Consciousness: Awake, Alert and Appropriate Hx Seizures: No Numbness or tingling in extremities: No Anesthesia Plan Anesthesia Risk discussed: Yes Anesthesia Plan: Verified ASA Class: II Anesthesia Type: General
--- NOTE | 2025-08-23 07:46 | CT_ITS ---
FINAL REPORT TECHNIQUE: Thin section axial images were obtained from the lung apices through the upper abdomen without contrast. This study was performed with techniques to keep radiation doses as low as reasonably achievable (ALARA). Individualized dose reduction techniques using automated exposure control or adjustment of mA and/or kV according to the patient's size were employed. CLINICAL HISTORY: Lung nOdu;le COMPARISON: 07/20/2025 FINDINGS: There is no mediastinal, hilar, or axillary lymphadenopathy. No pleural or pericardial effusion. There is no significant change in the spiculated left upper lobe nodule seen on the prior CT of 07/20/2025. This nodule measures 12 mm in size, is best seen on image #59 of series 3. There is also a 5 mm left upper lobe nodule, seen on image #113, new. There is a subpleural left lower lobe nodule best seen on image #149, stable. Otherwise, the lung gray are clear. There is a stable hypodense right adrenal nodule, which meets the criteria for adenoma. The hypodense liver lesion seen on the prior exam is stable. There is no acute osseous abnormality. IMPRESSION: 1. Stable spiculated left upper lobe nodule, malignancy not excluded, recommend PET/CT. 2. Additional nodules indeterminant, possibly post inflammatory. 3. Right adrenal adenoma. Reviewed, Interpreted and Dictated by Vianey Maier MD Transcribed by Ester San Authenticated and [facility]
--- NOTE | 2025-08-23 10:36 | XR_ITS ---
FINAL REPORT CLINICAL HISTORY: BRONCH 11:05 fluoro 201.01 mGy FINDINGS: FLUORO TIME PROCEDURE: Fluoroscopy in the operating room. FINDINGS: Fluoroscopy time was provided by the radiology department for bronchoscopy 1 spot image was obtained. Fluoroscopy exposure time: 11:05 minutes DAP: 201.01 mGy IMPRESSION: See operative report Reviewed, Interpreted and Dictated by Brett Nixon MD Transcribed by Delfina Gamboa Authenticated and [facility]
--- NOTE | 2025-08-23 11:09 | XR_ITS ---
FINAL REPORT CLINICAL HISTORY: PACU post ION bronchoscopy COMPARISON: 07/20/2025 FINDINGS: A portable view of the chest was obtained. Cardiac and mediastinal silhouettes are within normal limits. There is a subtle left upper lobe opacity, could represent airspace disease or hemorrhage after bronchoscopy. There is no pleural effusion or pneumothorax. IMPRESSION: No evidence of pneumothorax post bronchoscopy. Left upper lobe opacity, could be postbiopsy hemorrhage. Reviewed, Interpreted and Dictated by Vianey Maier MD Transcribed by Odessa Li Authenticated and [facility]
--- NOTE | 2025-08-23 11:10 | EXP.ANES.I ---
[facility] Anesthesia Record Part I Anesthesia Record I Intake, IV Amount: 1,000 Hydration: Adequate Estimated blood loss (mL): 0 Urine output (mL): 0 Blood Products used (#): none Blood Pressure: 159/99 SaO2: 92 Pulse Rate: 81 Airway Patency: Patent Respiratory Rate: 16 Temperature: 97.0 F Patient is:: Drowsy, Nasal O2 and Stable Stable to PACU at:: 11:08
[2025-08-23] MEDS: IPRATROPIUM/ALBUTEROL 3 ML NEB IH (11:27)
--- NOTE | 2025-08-23 11:32 | EXP.BRONCH.N ---
Procedure: Date: 08/23/25 Patient Date of :: 1965 Procedure Performed:: Navigational bronchoscopy, airway examination, bronchoalveolar lavage, trans bronchial fine-needle aspiration, trans bronchial brushing and trans bronchial biopsy of lung nodule, endobronchial biopsy and endobronchial ultrasound-guided lymph node surveillance and fine-needle aspiration of lymph node. Indications:: Lung nodule Performing Provider:: Charlene Blanco MD Referring Provider:: Dr: Vitor Marshall Sedation:: General anesthesia Procedure:: Navigational bronchoscopy, airway examination, bronchoalveolar lavage, trans bronchial fine-needle aspiration, trans bronchial brushing and trans bronchial biopsy of lung nodule, endobronchial biopsy and endobronchial ultrasound-guided lymph node surveillance and fine-needle aspiration of lymph node. A clean diagnostic bronchoscopy was advanced to the ET tube and airway examination was performed. Airways appeared grossly normal, no evidence of mucoid secretions, mucous plugging active bleeding/old blood clots noted. Moderate amount of secretions were noted. Diagnostic bronchoscopy was retracted, and Robotic Ion bronchoscopy was introduced through the ET tube. Patient images were previously uploaded into the ION Plan point software. The target nodule sampling was planned, and the pathway was mapped. The nodule measured 14 mm in long axis. Following airway examination, airway registration was performed using shape sensing robot assisted bronchoscopy (SSRAB). We were 10 mm from the near edge of the nodule in the EDWIGE. A Radial EBUS - [id number] was inserted to confirm the location which was tangential. Under fluoroscopy guidance the samples were taken. Sampling: A flexion 21 needle was used to perform FNA of the EDWIGE Lung nodule. A total of 5 passes were made. This was followed by passes with a needle brush, 2 pass was made. Transbronchial forceps biopsies were then performed with a total of 6 biopsies were performed in the EDWIGE Lung nodule. Bronchoalveolar lavage was performed with instillation of 20 cc normal saline with return of 10 cc back. Samples from transbronchial FNA, brush, forceps biopsy and bronchoalveolar lavage were sent in CytoLyt for cytopathologic examination. Ion robotic bronchoscopy was retracted and EBUS bronchoscope was introduced for lymph node surveillance. Five passes were taken using 21 gauge needing at lymph node stations 10L, 7 and 4L. Resultant lymph node FNA sample were labelled separately for each lymph node station and were sent in CytoLyt for cytopathologic examination. Findings:: Please see the procedure note Recommendations:: Postoperative bronchoscopy instructions Follow in pulmonary clinic in 5 to 7 days Complications:: No acute immediate complications Estimated blood obtained (mL): 5
--- NOTE | 2025-08-23 16:26 | EXP.ANES.II ---
[facility] Anesthesia Record Part II Anesthesia Record Part II Discharge Time: 12:15 Destination: [facility] (OP Surgery) PACU nurse assessment reviewed?: Yes Patient Condition:: Good Anesthesia Complications:: None Swallowing reflex intact?: Yes Airway Patency: Patent Cyanosis?: No Blood Pressure: 156/79 SaO2: 93 Respiratory Rate: 16 Pulse Rate: 76 Temperature: 97.1 F Mental Status: Alert & Oriented Pain level:: 0 Nausea and/or vomitting:: None Intake, IV Amount: 0 Hydration: Adequate
== END 2025-08-23 12:15 | disposition home or self-care (01) ==
PROVIDERS: PCP Family Medicine; Visit Provider Internal Medicine Pulmonary Disease
PROC: (CPT 31623; principal; 2025-08-23 07:30)
DX: R91.1 Solitary pulmonary nodule (principal); J43.9 Emphysema, unspecified; R06.09 Other forms of dyspnea; F17.210 Nicotine dependence, cigarettes, uncomplicated; Z80.1 Family history of malignant neoplasm of trachea, bronchus and lung; E78.5 Hyperlipidemia, unspecified; I10 Essential (primary) hypertension; F41.9 Anxiety disorder, unspecified; Z79.899 Other long term (current) drug therapy
CPT/HCPCS: 31623; 31624; 31627; 31628; 31629; 31653; 31654; 71045; 71250; 76000; J1100; J2003; J2250; J2405; J2704; J3010; J7120